=== PATIENT | male | born 1980 | race African-American/Black ===

== ENCOUNTER 2021-09-22 16:12 | Emergency (ER) | payer OTHER | END 2021-09-22 18:32 | disposition home or self-care (01) | LOC: FER 16:12 | DX: S02.2XXA Fracture of nasal bones, initial encounter for closed fracture (principal); M25.532 Pain in left wrist; Z88.0 Allergy status to penicillin; V49.9XXA Car occupant (driver) (passenger) injured in unspecified traffic accident, initial encounter | CPT/HCPCS: 70450; 70486; 73110 ==